=== PATIENT | female | born 1960 | race African-American/Black ===

== ENCOUNTER 2018-10-18 14:53 | Emergency (ER) | payer BC, MEDICAID ==
[~2018-10-18] VITALS: Ht 170.2 cm; Wt 100.0 kg
[~2018-10-18 14:53] MED LIST: LOSA25TA3
[2018-10-18] MEDS ORDERED: LORAZEPAM 2MG/ML CPJ IV ONE (16:00)
[2018-10-18] MEDS ORDERED: OLANZAPINE 5MG TABLET ODT PO ONE (16:00)
[2018-10-18] MEDS ORDERED: LOSARTAN POTASSIUM 25 MG TABLET PO ONE (16:15)
[2018-10-18 16:17] LABS: CHLORIDE 106 mEq/L (98-107)
[2018-10-18 16:18] LABS: BASOPHILS % 0.7 % (0.0-2.0); EOSINOPHILS % 2.2 % (0.0-5.0); HEMATOCRIT. 34.9 % (36.0-48.0); HEMOGLOBIN. 11.8 g/dL (12.0-16.0); MEAN CORPUSCULAR HEMOGLOBIN 30.8 pg (28.0-32.0); MEAN CORPUSCULAR VOLUME 90.7 fL (81.0-99.0); MEAN PLATELET VOLUME 9.2 fl (7.4-10.4); MONOCYTES % 6.1 % (2.0-8.0); PLATELET 298 x1000/uL (130-400); RED BLOOD CELL COUNT 3.84 mill/uL (4.2-5.4); RED CELL DISTRIBUTION WIDTH 14.5 % (11.6-14.6)
[2018-10-18 16:19] LABS: ETHANOL BLOOD < 10 mg/dL
[2018-10-18] MEDS ORDERED: LORAZEPAM 1MG TABLET PO ONE (16:30)
[2018-10-18 16:53] LABS: *AMPHETAMINES SCREEN URINE NEGATIVE (NEGATIVE); *BARBITURATES SCREEN URINE NEGATIVE (NEGATIVE); *BENZODIAZEPINES SCREEN URINE PRESUMTIVE POSITIVE (NEGATIVE)
[2018-10-18 16:55] LABS: *COCAINE SCREEN URINE NEGATIVE (NEGATIVE); CANNABINOID URINE SCREEN NEGATIVE (NEGATIVE); METHADONE URINE SCREEN NEGATIVE (NEGATIVE); OPIATES URINE SCREEN NEGATIVE (NEGATIVE); PHENCYCLIDINE URINE SCREEN NEGATIVE (NEGATIVE)
[2018-10-19] MEDS ORDERED: LOSARTAN POTASSIUM 50 MG TABLET PO SCH (09:00)
[2018-10-19 11:08] VITALS: BP 109/76
== END 2018-10-19 11:08 | disposition home or self-care (01) ==
LOC: ER 14:53
DX: R45.851 Suicidal ideations (principal); I10 Essential (primary) hypertension; F32.9 Major depressive disorder, single episode, unspecified; F41.9 Anxiety disorder, unspecified; Z98.890 Other specified postprocedural states; Z88.1 Allergy status to other antibiotic agents; Z79.899 Other long term (current) drug therapy
CPT/HCPCS: 36415; 80048; 80305; 80307; 80320; 80329; 85025; 99284; J2060; G0480

== ENCOUNTER 2018-11-24 12:22 | Emergency (ER) | payer MEDICAID ==
[~2018-11-24] VITALS: Ht 170.2 cm; Wt 106.0 kg
[2018-11-24] MEDS ORDERED: AMLODIPINE 5MG TABLET PO ONE (13:15)
[2018-11-24 14:09] LABS: BASOPHILS % 1.2 % (0.0-2.0); EOSINOPHILS % 2.5 % (0.0-5.0); HEMATOCRIT. 33.4 % (36.0-48.0); HEMOGLOBIN. 11.3 g/dL (12.0-16.0); MEAN CORPUSCULAR HEMOGLOBIN 30.5 pg (28.0-32.0); MEAN CORPUSCULAR VOLUME 89.8 fL (81.0-99.0); MEAN PLATELET VOLUME 9.2 fl (7.4-10.4); MONOCYTES % 6.3 % (2.0-8.0); PLATELET 302 x1000/uL (130-400); RED BLOOD CELL COUNT 3.71 mill/uL (4.2-5.4); RED CELL DISTRIBUTION WIDTH 14.5 % (11.6-14.6)
[2018-11-24 14:13] LABS: CHLORIDE 107 mEq/L (98-107)
[2018-11-24 15:00] VITALS: BP 173/92
== END 2018-11-24 15:29 | disposition home or self-care (01) ==
LOC: ER 12:22
DX: I16.1 Hypertensive emergency (principal); R05 Cough; R10.9 Unspecified abdominal pain
CPT/HCPCS: 36415; 71045; 93005; 99284